=== PATIENT | male | born 1990 | race Caucasian/White ===

== ENCOUNTER 2019-01-08 10:03 | Emergency (ER) | payer OTHER ==
[~2019-01-08] VITALS: Ht 167.6 cm; Wt 68.0 kg
[2019-01-08 10:13] VITALS: BP 116/74; Ht 167.6 cm; Wt 68.0 kg
== END 2019-01-08 11:41 | disposition home or self-care (01) ==
LOC: ED 10:03
DX: L03.116 Cellulitis of left lower limb (principal); B35.3 Tinea pedis
CPT/HCPCS: 82962